=== PATIENT | female | born 1975 | race Caucasian/White ===

== ENCOUNTER 2016-10-04 20:17 | Emergency (ER) | payer SELFPAY ==
[~2016-10-04] VITALS: Ht 172.7 cm; Wt 111.5 kg
[~2016-10-04 20:17] MED LIST: GABA-113 PO; LEVO100T7 PO
[2016-10-04 20:22] VITALS: Ht 172.7 cm; Wt 111.5 kg
[2016-10-04 20:44] VITALS: BP 135/81; PULSE 110; TEMP 37; O2SAT 99
[2016-10-04] MEDS ORDERED: DULO1CAP39 PO (20:46)
[2016-10-04] MEDS ORDERED: GABA-113 PO (20:47)
--- NOTE | 2016-10-04 20:59 | EMERGENCY ROOM VISIT NOTE ---
History First contact with patient: 20:25 Chief Complaint: EAR PAIN Stated Complaint: EAR HURTS DUE TO SOMETHING IN IT History of Present Illness The patient is a 41 year old female who presents to the Emergency Room with complaints of left ear pain for about the past 30 minutes. The patient states that she got out of the shower and used a Q-tip in her ear. She believes that a piece of the Q-tip broke off in her ear canal. She does have the sensation of a foreign body. The patient has not had fever or chills. No drainage or discharge from the ear. She does not have other complaints. She rates her discomfort a 4/10. Review of Systems More than 6 systems were reviewed and otherwise negative with the exception of history of present illness. Family History No pertinent family history Social History Smoking Status: Current Every Day Smoker Marital Status: Current/Historical Medications Scheduled Duloxetine HCl (Duloxetine HCl), 30 MG PO BID Gabapentin (Neurontin), 600 MG PO TID Levothyroxine Sodium (Levothyroxine Sodium), 112 MG PO DAILY Allergies Coded Allergies: No Known Allergies (Verified , 06/16/16) Physical Exam Vital Signs Date Time Temp Pulse Resp B/P Pulse Ox O2 Delivery O2 Flow Rate FiO2 10/04/16 20:44 37.0 110 18 135/81 99 10/04/16 20:22 37.0 110 18 135/81 99 Pain Rating (0-10): 3.0 Physical Exam VITALS: Vitals are noted on the nurse's note and reviewed by myself. Vital signs stable. GENERAL: Well-developed, well-nourished, white female, who is in no acute distress and resting comfortably. Patient is cooperative with the examination. EARS: External ear normal. External auditory canals clear, tympanic membranes pearly jiang without erythema or effusion bilaterally. No foreign body appreciated. No mastoid tenderness or otitis externa/media. HEART: Regular rate and rhythm without murmurs gallops or rubs. LUNGS: Clear to auscultation bilaterally without wheezes, rales or rhonchi. No retractions or accessory muscle use. Medical Decision & Procedures ED Course Physical exam and history were performed. Nursing notes and EMR were reviewed. Patient appears to have left ear pain after putting a Q-tip in her ear. On examination there is no foreign body appreciated. The tympanic membrane appears intact without blood or bleeding. There is no evidence of otitis or mastoiditis. The patient may have caused some superficial injury to her ear while utilizing the Q-tip. At this point I do not feel that she needs additional imaging or medication. She may use [id number] analgesics for pain control. She was asked to monitor for worsening symptoms and invited back to the ER with any new, worsening, or concerning events. The chart was completed utilizing [employer] Speech Voice Recognition Software. Grammatical errors, random word insertions, pronoun errors, and incomplete sentences are an occasional consequence of this system due to software limitations, ambient noise, and hardware issues. Any formal questions or concerns about the content, text, or information contained within the body of this dictation should be directly addressed to the provider for clarification. . Medical Decision Differential diagnosis includes, but is not limited to: Otitis media, otitis externa, foreign body, laceration, abrasion, tympanic membrane injury, and others Impression Primary Impression: Left ear pain Departure Information Dispostion Home / Self-Care Condition GOOD Referrals No Doctor, Assigned Forms HOME CARE DOCUMENTATION FORM, IMPORTANT VISIT INFORMATION Patient Instructions My [facility] Additional Instructions You were seen and evaluated today on an emergency basis only. This is not a substitute for, or an effort to provide, complete comprehensive medical care. It is not possible to recognize and treat all injuries or illnesses in a single emergency department visit. For this reason it is recommended that you followup with your primary care physician next week with any ongoing or persistent symptoms. You are welcome to return to the emergency department anytime with new, worsening, or concerning symptoms.
[2016-10-22] MEDS ORDERED: IBUP-1451 PO (13:10)
[2016-11-26] MEDS ORDERED: DULO60CA44 PO (13:24)
[2017-02-12] MEDS ORDERED: PRT40 PO ×2 (12:09→12:21)
[2017-02-12] MEDS ORDERED: FRRS300 PO ×2 (12:09→12:21)
[2017-02-12] MEDS ORDERED: FLM4 PO ×2 (12:09→12:21)
== END 2016-10-04 20:45 | disposition home or self-care (01) ==
LOC: C.EDB 20:18 → C.EDD 20:45
DX: H92.02 Otalgia, left ear (principal); F17.200 Nicotine dependence, unspecified, uncomplicated

== ENCOUNTER 2017-02-10 17:59 | Inpatient (IN) | payer SELFPAY ==
[~2017-02-10] VITALS: Ht 172.7 cm; Wt 110.0 kg
[~2017-02-10 17:59] MED LIST changes: +DULO60CA44 PO; +IBUP-1451 PO
[2017-02-10] MEDS ORDERED: SODIUM CHLORIDE 0.9% 1000ML 1,000 ML IV STA (18:17)
[2017-02-10 18:54] LABS: ISTAT CREATININE 0.7 mg/dl (0.6-1.3); ISTAT HEMOGLOBIN 9.9 g/dl (12.0-16.0); ISTAT IONIZED CALCIUM 1.12 mmol/l (1.12-1.32)
[2017-02-10 18:59] LABS: INR 0.9 (0.9-1.1); PARTIAL THROMBOPLASTIN RATIO 0.9
[2017-02-10 19:00] LABS: URINE APPEARANCE CLOUDY (CLEAR); URINE BILIRUBIN NEG (NEG); URINE COLOR DK YELLOW; URINE EPITHELIAL CELL AUTO >30 /lpf (0-5); URINE NITRITE NEG (NEG); URINE SPECIFIC GRAVITY 1.024 (1.000-1.030); UROBILINOGEN NEG (NEG)
[2017-02-10 19:06] LABS: ALT/SGPT 10 U/L (12-78); BLOOD UREA NITROGEN 8 mg/dl (7-18); BUN/CREATININE RATIO 8.3 (10-20); CALCIUM 8.4 mg/dl (8.5-10.1); CARBON DIOXIDE 24 mmol/L (21-32); CHLORIDE 109 mmol/L (98-107); CREATININE 0.92 mg/dl (0.60-1.20); GLUCOSE 93 mg/dl (70-99); POTASSIUM 3.1 mmol/L (3.5-5.1); SODIUM 140 mmol/L (136-145)
[2017-02-10 19:09] LABS: MANUAL MICROSCOPIC REQUIRED? NO; REVIEW REQ? YES
[2017-02-10 19:09] LABS: ALKALINE PHOSPHATASE 96 U/L (45-117); AST/SGOT 9 U/L (15-37)
[2017-02-10 19:14] LABS: PREG INTERNAL NEGATIVE QC NEG CLEAR BACKGROUND; PREG INTERNAL POSITIVE QC POS CONTROL LINE
[2017-02-10 19:23] LABS: URINE PATH CASTS 1-5 GRANULAR CASTS /lpf (0)
[2017-02-10] MEDS ORDERED: OPTIRAY 320 IV PRN (20:00)
--- NOTE | 2017-02-10 20:19 | DIAGNOSTIC IMAGING REPORT ---
CT ABD/PELVIS IV CONTRAST ONLY CLINICAL HISTORY: Left lower quadrant abdominal pain. GI bleed. COMPARISON STUDY: None. TECHNIQUE: Following the IV administration of 94 mL of Optiray-320, CT scan of the abdomen and pelvis was performed from the lung bases to the proximal femurs. Images are reviewed in the axial, sagittal, and coronal planes. IV contrast was administered without complication. He dose lowering technique was used consistent with the principal's of PUJA. CT DOSE: 1293.63 mGy.cm FINDINGS: Lower chest: There are mild basilar atelectatic changes. Liver: The contrast-enhanced liver is normal in size, contour, and attenuation. There is no intrahepatic biliary ductal dilatation. The hepatic veins and portal veins are patent. Gallbladder: Unremarkable. Spleen: Normal in size and attenuation. Pancreas: Unremarkable. Adrenal glands: Unremarkable. Kidneys: There are multiple tiny bilateral renal calculi. There is mild right-sided hydronephrosis. There is a 3 mm proximal right ureteral calculus. Bowel: There are no transition zones indicate bowel obstruction. There is rectus diastases. There is a fat-containing umbilical hernia. There are bilateral fat-containing hernias. There is no acute diverticulitis. There are no findings to indicate acute appendicitis. The appendix appears normal. Peritoneum: There is no intraperitoneal free air or abdominal ascites. Vasculature: The abdominal aorta is normal in course and caliber. Adenopathy: None. Pelvic viscera: There are bilateral 3 cm ovarian follicles/cysts, likely functional Skeletal structures: No destructive osseous lesions are seen. IMPRESSION: 1. Bilateral nephrolithiasis 2. 3 mm proximal right ureteral calculus with mild secondary obstructive changes 3. No evidence of bowel obstruction. No evidence of free air 4. Normal appendix. No evidence of diverticulitis. Electronically signed by: Karan Lozoya M.D. 02/10/2017 8:18 PM Dictated Date/Time: 02/10/2017 8:12 PM
[2017-02-10 20:51] LABS: HEMATOCRIT 28.6 % (37-47); MEAN CELL VOLUME 66.1 fL (80-100); MEAN CORPUSCULAR HEMOGLOBIN 17.6 pg (25-34); MEAN CORPUSCULAR HGB CONC 26.6 g/dl (32-36); PLATELET COUNT 624 K/uL (130-400); RED BLOOD COUNT 4.33 M/uL (4.2-5.4); WHITE BLOOD COUNT 14.75 K/uL (4.8-10.8)
[2017-02-10] MEDS ORDERED: POTASSIUM CHLORIDE 10 MEQ / 100ML WTR IV STA (20:53)
[2017-02-10 20:54] LABS: ANISOCYTOSIS PRESENT; BASO % 0.4 %; BASO ABS # 0.06 K/uL (0-0.2); COMPLETE YES; EOS % 6.2 %; HYPOCHROMIA PRESENT; IG% 0.8 %; LYMPH % 23.1 %; MICROCYTOSIS PRESENT; MONO % 6.1 %; NEUT % 63.4 %; POLYCHROMASIA 1+; SPHEROCYTE OCCASIONAL
[2017-02-10] MEDS ORDERED: RANITIDINE HCL 50 MG/100 ML D5W IV STA (22:37)
[2017-02-10 22:42] VITALS: BP 136/85; PULSE 83; TEMP 36.7; O2SAT 97
[2017-02-10] MEDS ORDERED: POTASSIUM CHLORIDE 10 MEQ TABCR PO STA (22:52)
[2017-02-10 23:00] VITALS: BP 139/77; PULSE 85; TEMP 36.7; O2SAT 97
--- NOTE | 2017-02-10 23:03 | EMERGENCY ROOM VISIT NOTE ---
History Report prepared by Fabio: Tita Jaffe Under the Supervision of: Dr. Livan Alexandra M.D. First contact with patient: 18:16 Chief Complaint: ABNORMAL LABS Stated Complaint: BLOOD COUNT LOW AND NEED EVALUATED History of Present Illness The patient is a 41 year old female who presents to the Emergency Room with complaints of an episode of abnormal labs beginning yesterday. The patient states that she was having blood in her stool and this has been going on for years. She reports that she had blood work done yesterday and her blood count was low at 7. After getting the results today she was told to come in to the ED to be evaluated. She notes that she was previously anemic when she was with her daughter but she has never had a blood transfusion. The patient states that she is on Gabapentin and Symbalta and she has been tired and fatigued but did not think this was unusual. She complains of some abdominal cramping. Pt denies LOC, headache, fevers, chills, diaphoresis, visual changes, neck pain, chest pain, breathing difficulties, nausea, vomiting, melena, hematochezia, urinary symptoms, numbness, weakness, lymphadenopathy, rash, or other complaints. She notes that she has chronic lower back pain. No family history of GI issues, Ulcerative Colitis, Irritable Bowel, or Crohn's disease that she knows of. She does state that she was adopted and does not know her biological fathers history. The patient states that she has been having slightly increased bleeding in her stool. She reports that she does not get her period and has not gotten it since September. Source of History: patient Onset: yesterday Position: other (global) Symptom Intensity: 7 Quality: cramping (7), other (low blood count) Timing: other (episode) Note: Pt complains of tiredness, fatigue, and abdominal cramping. Review of Systems See HPI for pertinent positives and negatives. A total of ten systems were reviewed and were otherwise negative. Past Medical & Surgical Medical Problems: (1) Fibromyalgia Family History No pertinent family history stated. Social History Smoking Status: Current Every Day Smoker Marital Status: Housing Status: lives with significant other Occupation Status: employed Current/Historical Medications Scheduled Duloxetine Hcl (Cymbalta), 60 MG PO BID Gabapentin (Neurontin), 600 MG PO TID Levothyroxine Sodium (Levothyroxine Sodium), 112 MCG PO DAILY Scheduled PRN Ibuprofen Tab (Motrin), 1 TAB PO BID PRN for prn Allergies Coded Allergies: No Known Allergies (Verified , 11/26/16) Physical Exam Vital Signs Date Time Temp Pulse Resp B/P (MAP) Pulse Ox O2 Delivery O2 Flow Rate FiO2 02/10/17 22:42 36.7 83 20 136/85 97 02/10/17 22:22 94 20 135/88 99 Room Air 02/10/17 21:22 89 20 144/82 99 Room Air 02/10/17 20:30 91 20 128/57 97 Room Air 02/10/17 19:30 36.8 91 16 129/78 96 Room Air 02/10/17 19:05 99 02/10/17 18:56 98 Room Air Physical Exam GENERAL: Awake, alert, well-appearing, in no distress HENT: Normocephalic, atraumatic. Oropharynx unremarkable. EYES: Normal conjunctiva. Sclera non-icteric. NECK: Supple. No nuchal rigidity. FROM. No JVD. RESPIRATORY: Clear to auscultation. CARDIAC: Tachycardic rate, normal rhythm. Extremities warm and well perfused. Pulses equal. ABDOMEN: Soft, non-distended. Lower abdominal tenderness on palpation. No rebound or guarding. No masses. RECTAL: Deferred. MUSCULOSKELETAL: Chest examination reveals no tenderness. The back is symmetrical on inspection without obvious abnormality. There is no CVA tenderness to palpation. No joint edema. LOWER EXTREMITIES: Calves are equal size bilaterally and non-tender. No edema. No discoloration. NEURO: Normal sensorium. No sensory or motor deficits noted. SKIN: No rash or jaundice noted. RECTAL: Significant hemorrhoidal disease, no active bleeding, no stool, heme negative Medical Decision & Procedures ER Provider Diagnostic Interpretation: Radiology results as stated below per my review and radiologist interpretation: CT ABD/PELVIS IV CONTRAST ONLY FINDINGS: Lower chest: There are mild basilar atelectatic changes. Liver: The contrast-enhanced liver is normal in size, contour, and attenuation. There is no intrahepatic biliary ductal dilatation. The hepatic veins and portal veins are patent. Gallbladder: Unremarkable. Spleen: Normal in size and attenuation. Pancreas: Unremarkable. Adrenal glands: Unremarkable. Kidneys: There are multiple tiny bilateral renal calculi. There is mild right-sided hydronephrosis. There is a 3 mm proximal right ureteral calculus. Bowel: There are no transition zones indicate bowel obstruction. There is rectus diastases. There is a fat-containing umbilical hernia. There are bilateral fat-containing hernias. There is no acute diverticulitis. There are no findings to indicate acute appendicitis. The appendix appears normal. Peritoneum: There is no intraperitoneal free air or abdominal ascites. Vasculature: The abdominal aorta is normal in course and caliber. Adenopathy: None. Pelvic viscera: There are bilateral 3 cm ovarian follicles/cysts, likely functional Skeletal structures: No destructive osseous lesions are seen. IMPRESSION: 1. Bilateral nephrolithiasis 2. 3 mm proximal right ureteral calculus with mild secondary obstructive changes 3. No evidence of bowel obstruction. No evidence of free air 4. Normal appendix. No evidence of diverticulitis. Electronically signed by: Karan Lozoya M.D. 02/10/2017 8:18 PM Dictated Date/Time: 02/10/2017 8:12 PM Laboratory Results 02/10/17 18:30 Red Blood Count 4.33, Mean Corpuscular Volume 66.1, Mean Corpuscular Hemoglobin 17.6, Mean Corpuscular Hemoglobin Concent 26.6, Mean Platelet Volume 9.0, Neutrophils (%) (Auto) 63.4, Lymphocytes (%) (Auto) 23.1, Monocytes (%) (Auto) 6.1, Eosinophils (%) (Auto) 6.2, Basophils (%) (Auto) 0.4, Neutrophils # (Auto) 9.36, Lymphocytes # (Auto) 3.40, Monocytes # (Auto) 0.90, Eosinophils # (Auto) 0.91, Basophils # (Auto) 0.06 02/10/17 18:30 Test 02/10/17 18:25 02/10/17 18:30 02/10/17 18:41 02/10/17 22:52 Urine Color DK YELLOW Urine Appearance CLOUDY (CLEAR) Urine pH 6.0 (4.5-7.5) Urine Specific [place] 1.024 (1.000-1.030) Urine Protein 1+ (NEG) Urine Glucose (UA) NEG (NEG) Urine Ketones NEG (NEG) Urine Occult Blood 3+ (NEG) Urine Nitrite NEG (NEG) Urine Bilirubin NEG (NEG) Urine Urobilinogen NEG (NEG) Urine Leukocyte Esterase TRACE (NEG) Urine WBC (Auto) 10-30 /hpf (0-5) Urine RBC (Auto) >30 /hpf (0-4) Urine Hyaline Casts (Auto) 10-30 /lpf (0-5) Urine Epithelial Cells (Auto) >30 /lpf (0-5) Urine Bacteria (Auto) NEG (NEG) Urine Renal Epithelial Cells 0-5 /lpf (0-5) Urine Pathogenic Casts 1-5 GRANULAR CASTS /lpf (0) White Blood Count 14.75 K/uL (4.8-10.8) Red Blood Count 4.33 M/uL (4.2-5.4) Hemoglobin 7.6 g/dL (12.0-16.0) Hematocrit 28.6 % (37-47) Mean Corpuscular Volume 66.1 fL (80-100) Mean Corpuscular Hemoglobin 17.6 pg (25-34) Mean Corpuscular Hemoglobin Concent 26.6 g/dl (32-36) Platelet Count 624 K/uL (130-400) Mean Platelet Volume 9.0 fL (7.4-10.4) Neutrophils (%) (Auto) 63.4 % Lymphocytes (%) (Auto) 23.1 % Monocytes (%) (Auto) 6.1 % Eosinophils (%) (Auto) 6.2 % Basophils (%) (Auto) 0.4 % Neutrophils # (Auto) 9.36 K/uL (1.4-6.5) Lymphocytes # (Auto) 3.40 K/uL (1.2-3.4) Monocytes # (Auto) 0.90 K/uL (0.11-0.59) Eosinophils # (Auto) 0.91 K/uL (0-0.5) Basophils # (Auto) 0.06 K/uL (0-0.2) RDW Standard Deviation 49.5 fL (36.4-46.3) RDW Coefficient of Variation 20.6 % (11.5-14.5) Immature Granulocyte % (Auto) 0.8 % Immature Granulocyte # (Auto) 0.12 K/uL (0.00-0.02) Nucleated RBC Absolute Count (auto) 0.10 K/uL (0-0) Nucleated Red Blood Cells % 0.7 % Polychromasia 1+ Hypochromasia PRESENT Anisocytosis PRESENT Microcytosis PRESENT Spherocytes OCCASIONAL Prothrombin Time 10.0 SECONDS (9.0-12.0) Prothromb Time International Ratio 0.9 (0.9-1.1) Activated Partial Thromboplast Time 24.5 SECONDS (21.0-31.0) Partial Thromboplastin Ratio 0.9 Est Creatinine Clear Calc Drug Dose 106.7 ml/min Estimated GFR () 90.9 Estimated GFR (Non- 78.4 BUN/Creatinine Ratio 8.3 (10-20) Calcium Level 8.4 mg/dl (8.5-10.1) Total Bilirubin 0.4 mg/dl (0.2-1) Direct Bilirubin < 0.1 mg/dl (0-0.2) Aspartate Amino Transf (AST/SGOT) 9 U/L (15-37) Alanine Aminotransferase (ALT/SGPT) 10 U/L (12-78) Alkaline Phosphatase 96 U/L (45-117) Total Protein 8.3 gm/dl (6.4-8.2) Albumin 3.5 gm/dl (3.4-5.0) Lipase 184 U/L (73-393) Human Chorionic Gonadotropin, Qual NEG (NEG) Bedside Hemoglobin 9.9 g/dl (12.0-16.0) Bedside Hematocrit 29 % (37-47) Bedside Sodium 141 mEq/L (135-144) Bedside Potassium 3.2 mEq/L (3.3-5.0) Bedside Chloride 105 mEq/L (101-112) Bedside Total CO2 22 mEq/l (24-31) Anion Gap 18.0 mmol/L (16-25) Bedside Blood Urea Nitrogen 6 mg/dl (7-18) Bedside Creatinine 0.7 mg/dl (0.6-1.3) Bedside Glucose (other) 94 mg/dl (70-99) Bedside Ionized Calcium (Josr) 1.12 mmol/l (1.12-1.32) Laboratory results reviewed by me Medications Administered Medications (Trade) Dose Ordered Sig/Martha Route Start Time Stop Time Status Last Admin Dose Admin Sodium Chloride 1,000 ml @ 999 mls/hr Q1H1M STAT IV 02/10/17 18:17 02/10/17 19:17 DC 02/10/17 19:00 999 MLS/HR Potassium Chloride (Kcl 10 Meq / Wtr) 10 meq NOW STAT IV 02/10/17 20:53 02/10/17 20:54 DC 02/10/17 21:22 10 MEQ ECG Indication: weakness Rate (beats per minute): 91 Rhythm: normal sinus Findings: no acute ischemic change, no ectopy ED Course 1815: The patient was evaluated in room B11. A complete history and physical exam was performed. 1816: Sodium Chloride 1000 ml @ 999 mls/hr IV. 2052: Potassium Chloride 10meqq IV. 2125: I reevaluated the patient. She notes that she has been taking Motrin several times a day for months for her back pain. 2230: Discussed the patient's case with Dr. Avila of [facility]. The patient will be evaluated for further treatment and disposition. 2240: Upon reexamination, the patient was doing well. I discussed the test results and treatment plan with the patient. The patient will be evaluated for further management. Medical Decision Medication Reconciliation: I attest that I have personally reviewed the patient' s current medication list Patient was found to have a slightly elevated blood pressure due to circumstances. I do not believe that the patient requires hypertension monitoring. Prior records/ancillary studies reviewed. The patient was significantly anemic on outpatient blood work. Triage Nursing notes reviewed and agree them. The patient's history was concerning for possible gastrointestinal bleeding. Differential diagnosis: Etiologies such as diverticulosis, AVM, coagulopathy, colitis, inflammatory bowel disease, malignancy,Nichol-Bell tear, esophagitis, peptic ulcer disease , variceal bleed, gastritis, epistaxis, fissure, hemorrhoids, as well as others were entertained. Physical exam: As above. Abdominal tenderness noted, mainly in the left side. ER treatment provided: IV hydration with normal saline on IV potassium IV Zantac Packed red blood cell transfusion. The patient consented. On reassessment the patient was stable. She denied any significant right-sided pain. She was unaware of her kidney stones. Diagnostics interpreted by me: The labs revealed a mild leukocytosis on CBC. Her chemistry panel was unremarkable for mild hypokalemia. Her CBC did also reveal a significant anemia confirming that from the outpatient setting. test was negative. Urinalysis was as above. Culture pending. Imaging studies: CT scan as above. The patient has a significant anemia. She is hemodynamically stable at the moment. On further history she noted she was taking a significant amount of NSAIDs. Consultation: A consultation was placed with the hospitalist. The case was discussed and diagnostics were reviewed. The patient was evaluated in the ER for further treatment. Consults Time Called: 2134 Consulting Physician: Dr. Austin Archuleta Returned Call: 2230 Discussed the patient's case Dr. Avila of [facility]. The patient will be evaluated for further treatment and disposition. Impression Primary Impression: Severe anemia Additional Impressions: GI bleed Hypokalemia Nephrolithiasis Ureterolithiasis Scribe Attestation The scribe's documentation has been prepared under my direction and personally reviewed by me in its entirety. I confirm that the note above accurately reflects all work, treatment, procedures, and medical decision making performed by me. Departure Information Dispostion Being Evaluated By Hospitalist (COOPER) Referrals [facility] (PCP) Patient Instructions My [facility] Problem Qualifiers
[2017-02-10 23:12] LABS: MAGNESIUM 2.3 mg/dl (1.8-2.4)
[2017-02-10 23:15] VITALS: BP 133/92; PULSE 86; TEMP 36.7; O2SAT 98
[2017-02-10 23:40] VITALS: BP 139/69; PULSE 87; TEMP 37; O2SAT 100; Ht 172.7 cm; Wt 110.0 kg
[2017-02-10 23:45] VITALS: BP 139/69; PULSE 87; TEMP 37; O2SAT 100
[2017-02-10] MEDS ORDERED: ONDANSETRON INJ 2 MG/ML 2 ML VIAL IV PRN (23:45)
[2017-02-10] MEDS ORDERED: ACETAMINOPHEN 325 MG TAB PO PRN (23:45)
[2017-02-10] MEDS ORDERED: PROMETHAZINE HCL INJ 12.5 MG in SODIUM CHLORIDE 0.9% 50ML 50 ML IV PRN (23:45)
[2017-02-10] MEDS ORDERED: TRAMADOL HCL 50 MG TAB PO PRN (23:45)
[2017-02-10] MEDS ORDERED: MoRPHine SULFATE 4 MG/ML 1 ML CARP\\VIAL IV PRN (23:45)
--- NOTE | 2017-02-10 23:51 | History and Physical ---
History & Physical Date & Time of Service: Feb 10, 2017 at 23:51 Chief Complaint: Blood Count Low And Need Evaluated Primary Care Physician: [facility] History of Present Illness Source: patient, partner Patient has been complaining of achy low back pain for some months now. Denies hematuria. No fever or chills. Admits to intake to at least 2 g of [id number] ibuprofen daily for months now, sometimes on an empty stomach. The last week patient noted increase in usual rectal bleeding of several months which she attributed to hemorrhoids. Generalized abdominal pain the last day. No chest pain no shortness of breath. No emesis. No recent antibiotics, no sick contacts, no recent travel. No unusual weight loss. Outpatient hemoglobin noted to be 7. Patient sent by PCP to the emergency room. At the emergency room, Zantac given for possible UG IB. 1 unit packed RBC transfusion initiated in the ER. Past Medical/Surgical History Medical Problems: (1) Fibromyalgia Status: Chronic Hemorrhoids Chronic anemia (Baseline hemoglobin 10) Ongoing tobacco abuse Surgeries : L Knee surgery tonsillectomy Bilateral tubal ligation No previous endoscopies in the past Family History Patient reports no known family medical history. Social History Smoking Status: Current Every Day Smoker Alcohol Use: none Marital Status: Occupational Status: employed, unemployed, other (was working at the [employer] ) Multi-Drug Resistant Organisms History of MDRO: No Allergies Coded Allergies: No Known Allergies (Verified , 11/26/16) Home Medications Scheduled Duloxetine Hcl (Cymbalta), 60 MG PO BID Gabapentin (Neurontin), 600 MG PO TID Levothyroxine Sodium (Levothyroxine Sodium), 112 MCG PO DAILY Scheduled PRN Ibuprofen Tab (Motrin), 1 TAB PO BID PRN for prn Review of Systems As per history of present illness, all other ROS negative. Physical Exam Vital Signs Date Time Temp Pulse Resp B/P (MAP) Pulse Ox O2 Delivery O2 Flow Rate FiO2 02/10/17 23:29 90 20 133/92 97 Room Air 02/10/17 23:15 36.7 86 20 133/92 98 02/10/17 23:00 36.7 85 20 139/77 97 02/10/17 22:42 36.7 83 20 136/85 97 02/10/17 22:22 94 20 135/88 99 Room Air 02/10/17 21:22 89 20 144/82 99 Room Air 02/10/17 20:30 91 20 128/57 97 Room Air 02/10/17 19:30 36.8 91 16 129/78 96 Room Air 02/10/17 19:05 99 02/10/17 18:56 98 Room Air General Appearance: + obese, + pertinent finding (looks older than stated age) Head: normocephalic Eyes: + pertinent finding (pale palpebral conjunctivae, moist buccal mucosa) ENT: + pertinent finding Neck: + pertinent finding Respiratory/Chest: + decreased breath sounds (short) Cardiovascular: regular rate, rhythm Abdomen/GI: + pertinent finding (epigastric/hypogastric tenderness) Back: + right CVA tenderness Extremities/Musculoskelatal: non-tender Neurologic/Psych: alert Skin: + pallor Diagnostics Laboratory Results Results Past 24 Hours Test 02/10/17 18:25 02/10/17 18:30 02/10/17 18:41 Range/Units Urine Color DK YELLOW Urine Appearance CLOUDY CLEAR Urine pH 6.0 4.5-7.5 Urine Specific [place] 1.024 1.000-1.030 Urine Protein 1+ NEG Urine Glucose (UA) NEG NEG Urine Ketones NEG NEG Urine Occult Blood 3+ NEG Urine Nitrite NEG NEG Urine Bilirubin NEG NEG Urine Urobilinogen NEG NEG Urine Leukocyte Esterase TRACE NEG Urine WBC (Auto) 10-30 0-5 /hpf Urine RBC (Auto) >30 0-4 /hpf Urine Hyaline Casts (Auto) 10-30 0-5 /lpf Urine Epithelial Cells (Auto) >30 0-5 /lpf Urine Bacteria (Auto) NEG NEG Urine Renal Epithelial Cells 0-5 0-5 /lpf Urine Pathogenic Casts 1-5 GRANULAR CASTS 0 /lpf White Blood Count 14.75 4.8-10.8 K/uL Red Blood Count 4.33 4.2-5.4 M/uL Hemoglobin 7.6 12.0-16.0 g/dL Hematocrit 28.6 37-47 % Mean Corpuscular Volume 66.1 80-100 fL Mean Corpuscular Hemoglobin 17.6 25-34 pg Mean Corpuscular Hemoglobin Concent 26.6 32-36 g/dl Platelet Count 624 130-400 K/uL Mean Platelet Volume 9.0 7.4-10.4 fL Neutrophils (%) (Auto) 63.4 % Lymphocytes (%) (Auto) 23.1 % Monocytes (%) (Auto) 6.1 % Eosinophils (%) (Auto) 6.2 % Basophils (%) (Auto) 0.4 % Neutrophils # (Auto) 9.36 1.4-6.5 K/uL Lymphocytes # (Auto) 3.40 1.2-3.4 K/uL Monocytes # (Auto) 0.90 0.11-0.59 K/uL Eosinophils # (Auto) 0.91 0-0.5 K/uL Basophils # (Auto) 0.06 0-0.2 K/uL RDW Standard Deviation 49.5 36.4-46.3 fL RDW Coefficient of Variation 20.6 11.5-14.5 % Immature Granulocyte % (Auto) 0.8 % Immature Granulocyte # (Auto) 0.12 0.00-0.02 K/uL Nucleated RBC Absolute Count (auto) 0.10 0-0 K/uL Nucleated Red Blood Cells % 0.7 % Polychromasia 1+ Hypochromasia PRESENT Anisocytosis PRESENT Microcytosis PRESENT Spherocytes OCCASIONAL Prothrombin Time 10.0 9.0-12.0 SECONDS Prothromb Time International Ratio 0.9 0.9-1.1 Activated Partial Thromboplast Time 24.5 21.0-31.0 SECONDS Partial Thromboplastin Ratio 0.9 Sodium Level 140 136-145 mmol/L Potassium Level 3.1 3.5-5.1 mmol/L Chloride Level 109 98-107 mmol/L Carbon Dioxide Level 24 21-32 mmol/L Anion Gap 7.0 18.0 16-25 mmol/L Blood Urea Nitrogen 8 7-18 mg/dl Creatinine 0.92 0.60-1.20 mg/dl Est Creatinine Clear Calc Drug Dose 106.7 ml/min Estimated GFR () 90.9 Estimated GFR (Non- 78.4 BUN/Creatinine Ratio 8.3 10-20 Random Glucose 93 70-99 mg/dl Calcium Level 8.4 8.5-10.1 mg/dl Magnesium Level 2.3 1.8-2.4 mg/dl Total Bilirubin 0.4 0.2-1 mg/dl Direct Bilirubin < 0.1 0-0.2 mg/dl Aspartate Amino Transf (AST/SGOT) 9 15-37 U/L Alanine Aminotransferase (ALT/SGPT) 10 12-78 U/L Alkaline Phosphatase 96 45-117 U/L Total Protein 8.3 6.4-8.2 gm/dl Albumin 3.5 3.4-5.0 gm/dl Lipase 184 73-393 U/L Human Chorionic Gonadotropin, Qual NEG NEG Bedside Hemoglobin 9.9 12.0-16.0 g/dl Bedside Hematocrit 29 37-47 % Bedside Sodium 141 135-144 mEq/L Bedside Potassium 3.2 3.3-5.0 mEq/L Bedside Chloride 105 101-112 mEq/L Bedside Total CO2 22 24-31 mEq/l Bedside Blood Urea Nitrogen 6 7-18 mg/dl Bedside Creatinine 0.7 0.6-1.3 mg/dl Bedside Glucose (other) 94 70-99 mg/dl Bedside Ionized Calcium (Josr) 1.12 1.12-1.32 mmol/l Microbiology Results 02/10/17 Urine Culture, Received Pending Diagnostic Radiology CT ABD/PELVIS IV CONTRAST ONLY CLINICAL HISTORY: Left lower quadrant abdominal pain. GI bleed. COMPARISON STUDY: None. TECHNIQUE: Following the IV administration of 94 mL of Optiray-320, CT scan of the abdomen and pelvis was performed from the lung bases to the proximal femurs. Images are reviewed in the axial, sagittal, and coronal planes. IV contrast was administered without complication. He dose lowering technique was used consistent with the principal's of PUJA. CT DOSE: 1293.63 mGy.cm FINDINGS: Lower chest: There are mild basilar atelectatic changes. Liver: The contrast-enhanced liver is normal in size, contour, and attenuation. There is no intrahepatic biliary ductal dilatation. The hepatic veins and portal veins are patent. Gallbladder: Unremarkable. Spleen: Normal in size and attenuation. Pancreas: Unremarkable. Adrenal glands: Unremarkable. Kidneys: There are multiple tiny bilateral renal calculi. There is mild right-sided hydronephrosis. There is a 3 mm proximal right ureteral calculus. Bowel: There are no transition zones indicate bowel obstruction. There is rectus diastases. There is a fat-containing umbilical hernia. There are bilateral fat-containing hernias. There is no acute diverticulitis. There are no findings to indicate acute appendicitis. The appendix appears normal. Peritoneum: There is no intraperitoneal free air or abdominal ascites. Vasculature: The abdominal aorta is normal in course and caliber. Adenopathy: None. Pelvic viscera: There are bilateral 3 cm ovarian follicles/cysts, likely functional Skeletal structures: No destructive osseous lesions are seen. IMPRESSION: 1. Bilateral nephrolithiasis 2. 3 mm proximal right ureteral calculus with mild secondary obstructive changes 3. No evidence of bowel obstruction. No evidence of free air 4. Normal appendix. No evidence of diverticulitis. Impression Assessment and Plan AP GI bleed LGIB (differentials : Colitis, hemorrhoid bleed) Possible UGIB with epigastric tenderness and admission of OTC NSAID intake ( differentials: gastritis, PUD) Acute on chronic anemia secondary to above Back pain, ? obstructive uropathy on CT Hypokalemia secondary to diarrhea Fibromyalgia as per records Ongoing tobacco abuse GMF Serial H&H, transfuse packed RBC to maintain hemoglobin greater than 7 PPI drip for now for possible UGIB Patient counseled about hazards of excessive NSAID intake Stool C. difficile, Flagyl for now for presumptive C. difficile in light of leukocytosis DC Flagyl if stool C. difficile negative GI consult Re GI bleed replace K Flomax trial, Urology consult re: abnormal CT, possible obstructive uropathy Nicotine patch DVT prophylaxis SCDs Full code VTE Prophylaxis VTE Risk Assessment Done? Y/N: Yes Risk Level: Moderate
[2017-02-11] VITALS (10 sets, daily range): BP systolic 125–148; BP diastolic 69–86; PULSE 78–89; TEMP 36.4–37; O2SAT 97–100
[2017-02-11] MEDS ORDERED: TAMSULOSIN HCL 0.4 MG CAP PO ONE ×2 (01:15→09:00)
[2017-02-11] MEDS ORDERED: METRONIDAZOLE 500 MG TAB PO ONE (01:15)
[2017-02-11] MEDS: LACTATED RINGER'S 1000ML 1,000 ML IV SCH ×2 (01:32→10:15)
[2017-02-11] MEDS: PANTOprazole INJ 40 MG in DEXTROSE 5% 100ML 100 ML IV SCH ×3 (01:32→10:15)
[2017-02-11] MEDS: LEVOTHYROXINE 112 MCG TAB PO SCH (05:32)
[2017-02-11 06:37] LABS: HEMATOCRIT 28.2 % (37-47); MEAN CELL VOLUME 67.8 fL (80-100); MEAN PLATELET VOLUME 8.9 fL (7.4-10.4); PLATELET COUNT 482 K/uL (130-400); RED BLOOD COUNT 4.16 M/uL (4.2-5.4); WHITE BLOOD COUNT 10.19 K/uL (4.8-10.8)
[2017-02-11 06:56] LABS: ANISOCYTOSIS PRESENT; BASO % 0.3 %; BASO ABS # 0.03 K/uL (0-0.2); COMPLETE YES; EOS % 5.3 %; HYPOCHROMIA PRESENT; IG% 0.6 %; LARGE PLATELETS 1+; LYMPH % 24.5 %; MONO % 6.7 %; NEUT % 62.6 %; POLYCHROMASIA 1+
[2017-02-11 07:01] LABS: BUN/CREATININE RATIO 7.2 (10-20); CALCIUM 7.6 mg/dl (8.5-10.1); CREATININE 0.68 mg/dl (0.60-1.20); FERRITIN 3.1 ng/ml (8.0-388.0); POTASSIUM 3.6 mmol/L (3.5-5.1)
[2017-02-11] MEDS: DULOXETINE HCL 60 MG CAP PO SCH ×2 (07:55→20:45)
[2017-02-11] MEDS: NICOTINE 21 MG/24 HR TDSY TD SCH (07:56)
[2017-02-11] MEDS: GABAPENTIN 600 MG TAB PO SCH ×3 (07:56→20:45)
[2017-02-11] MEDS ORDERED: METRONIDAZOLE 500 MG TAB PO SCH (09:00)
[2017-02-11] MEDS: TAMSULOSIN HCL 0.4 MG CAP PO SCH (09:00)
--- NOTE | 2017-02-11 09:00 | Urology Consultation ---
History General Date of Service: Feb 11, 2017. Chief Complaint: kidney stones Primary Care Physician: [facility] Pt seen a urologist before?: No History of Present Illness I am asked by Dr Uribe to evaluate and treat patient for kidney stones. She is admitted with abdominal pain and possible gi bleed. She has been using NSAIDS to try to control her pain. She is anemic. She reports that she had some blood work at [facility] and they called her and told her to go to the ER. She says she has been in her normal state of health the last 5 days. She is sometimes tired. She has no nausea. She has chronic low back pain right and left equally which ranges in intensity from 5-9/10 depending on activity. The pain radiates down both legs. She has no abdominal pain today. Bowels are chronically liquid brown with some red in it. Imaging Imaging: CT Laboratory Results Past 24 Hours Test 02/10/17 18:25 02/10/17 18:30 02/10/17 18:41 02/11/17 05:43 Range/Units Urine Color DK YELLOW Urine Appearance CLOUDY CLEAR Urine pH 6.0 4.5-7.5 Urine Specific [place] 1.024 1.000-1.030 Urine Protein 1+ NEG Urine Glucose (UA) NEG NEG Urine Ketones NEG NEG Urine Occult Blood 3+ NEG Urine Nitrite NEG NEG Urine Bilirubin NEG NEG Urine Urobilinogen NEG NEG Urine Leukocyte Esterase TRACE NEG Urine WBC (Auto) 10-30 0-5 /hpf Urine RBC (Auto) >30 0-4 /hpf Urine Hyaline Casts (Auto) 10-30 0-5 /lpf Urine Epithelial Cells (Auto) >30 0-5 /lpf Urine Bacteria (Auto) NEG NEG Urine Renal Epithelial Cells 0-5 0-5 /lpf Urine Pathogenic Casts 1-5 GRANULAR CASTS 0 /lpf White Blood Count 14.75 10.19 4.8-10.8 K/uL Red Blood Count 4.33 4.16 4.2-5.4 M/uL Hemoglobin 7.6 7.9 12.0-16.0 g/dL Hematocrit 28.6 28.2 37-47 % Mean Corpuscular Volume 66.1 67.8 80-100 fL Mean Corpuscular Hemoglobin 17.6 19.0 25-34 pg Mean Corpuscular Hemoglobin Concent 26.6 28.0 32-36 g/dl Platelet Count 624 482 130-400 K/uL Mean Platelet Volume 9.0 8.9 7.4-10.4 fL Neutrophils (%) (Auto) 63.4 62.6 % Lymphocytes (%) (Auto) 23.1 24.5 % Monocytes (%) (Auto) 6.1 6.7 % Eosinophils (%) (Auto) 6.2 5.3 % Basophils (%) (Auto) 0.4 0.3 % Neutrophils # (Auto) 9.36 6.38 1.4-6.5 K/uL Lymphocytes # (Auto) 3.40 2.50 1.2-3.4 K/uL Monocytes # (Auto) 0.90 0.68 0.11-0.59 K/uL Eosinophils # (Auto) 0.91 0.54 0-0.5 K/uL Basophils # (Auto) 0.06 0.03 0-0.2 K/uL RDW Standard Deviation 49.5 53.4 36.4-46.3 fL RDW Coefficient of Variation 20.6 21.6 11.5-14.5 % Immature Granulocyte % (Auto) 0.8 0.6 % Immature Granulocyte # (Auto) 0.12 0.06 0.00-0.02 K/uL Nucleated RBC Absolute Count (auto) 0.10 0-0 K/uL Nucleated Red Blood Cells % 0.7 % Polychromasia 1+ 1+ Hypochromasia PRESENT PRESENT Anisocytosis PRESENT PRESENT Microcytosis PRESENT Spherocytes OCCASIONAL Prothrombin Time 10.0 9.0-12.0 SECONDS Prothromb Time International Ratio 0.9 0.9-1.1 Activated Partial Thromboplast Time 24.5 21.0-31.0 SECONDS Partial Thromboplastin Ratio 0.9 Sodium Level 140 143 136-145 mmol/L Potassium Level 3.1 3.6 3.5-5.1 mmol/L Chloride Level 109 115 98-107 mmol/L Carbon Dioxide Level 24 24 21-32 mmol/L Anion Gap 7.0 18.0 4.0 3-11 mmol/L Blood Urea Nitrogen 8 5 7-18 mg/dl Creatinine 0.92 0.68 0.60-1.20 mg/dl Est Creatinine Clear Calc Drug Dose 106.7 144.4 ml/min Estimated GFR () 90.9 127.7 Estimated GFR (Non- 78.4 110.2 BUN/Creatinine Ratio 8.3 7.2 10-20 Random Glucose 93 94 70-99 mg/dl Calcium Level 8.4 7.6 8.5-10.1 mg/dl Magnesium Level 2.3 1.8-2.4 mg/dl Total Bilirubin 0.4 0.2-1 mg/dl Direct Bilirubin < 0.1 0-0.2 mg/dl Aspartate Amino Transf (AST/SGOT) 9 15-37 U/L Alanine Aminotransferase (ALT/SGPT) 10 12-78 U/L Alkaline Phosphatase 96 45-117 U/L Total Protein 8.3 6.4-8.2 gm/dl Albumin 3.5 3.4-5.0 gm/dl Lipase 184 73-393 U/L Human Chorionic Gonadotropin, Qual NEG NEG Bedside Hemoglobin 9.9 12.0-16.0 g/dl Bedside Hematocrit 29 37-47 % Bedside Sodium 141 135-144 mEq/L Bedside Potassium 3.2 3.3-5.0 mEq/L Bedside Chloride 105 101-112 mEq/L Bedside Total CO2 22 24-31 mEq/l Bedside Blood Urea Nitrogen 6 7-18 mg/dl Bedside Creatinine 0.7 0.6-1.3 mg/dl Bedside Glucose (other) 94 70-99 mg/dl Bedside Ionized Calcium (Josr) 1.12 1.12-1.32 mmol/l Large Platelets 1+ Absolute Reticulocyte Count 0.08 0.02-0.10 10^6/uL Percent Reticulocyte Count 1.9 0.5-2.0 % Iron Level 21 35-150 mcg/dl Total Iron Binding Capacity 395 250-450 mcg/dl Transferrin 301 200-360 mg/dl Transferrin % Saturation 5 15-50 % Ferritin 3.1 8.0-388.0 ng/ml Vitamin B12 Level 275 211-911 pg/mL Folate 8.83 >5.38 ng/mL Microbiology Results 02/11/17 C.difficile Toxin B Gene (PCR) - Final, Complete No C. difficile toxin B gene detected 02/10/17 Urine Culture, Received Pending Labs were reviewed and are within normal limits unless listed below. Labs are available in the chart and at [facility] Problem List Medical Problems: (1) Hypokalemia Status: Acute (2) Left ear pain Status: Acute (3) Nephrolithiasis Status: Acute (4) Severe anemia Status: Acute (5) Ureterolithiasis Status: Acute Past History fibromyalgia Past Surgical History: orthopedic surgery (left knee scope, ), tonsillectomy, tubal ligation Family History no stones Social History Hx Tobacco Use In Past Year?: Yes (Cigarettes) Smoking: greater than 1 pack/day (smokes 2 ppd ) Alcohol: no current use Marital status: Housing status: lives with family Occupation status: unemployed History of MDRO No Allergies Coded Allergies: No Known Allergies (Verified , 11/26/16) Medications Home Medications: Home Meds and Scripts Medications Dose Route/Sig Max Daily Dose Days Date Category Cymbalta (Duloxetine Hcl) 60 Mg Cap 60 Mg PO BID 11/26/16 Reported Motrin (Ibuprofen) 800 Mg Tab 1 Tab PO BID PRN 30 10/22/16 Reported Neurontin (Gabapentin) 300 Mg Cap 600 Mg PO TID 06/16/16 Reported Levothyroxine Sodium 100 Mcg Tab 112 Mcg PO DAILY 12/04/15 Reported Inpatient Medications: Current Inpatient Medications Medications (Trade) Dose Ordered Sig/Martha Route Start Time Stop Time Status Last Admin Dose Admin Ioversol (Optiray 320) 100 ml UD PRN IV 02/10/17 20:00 02/14/17 19:59 Metronidazole (Flagyl Tab) 500 mg TID PO 02/11/17 09:00 02/21/17 08:59 02/11/17 07:56 500 MG Tamsulosin HCl (Flomax Cap) 0.4 mg QAM PO 02/12/17 09:00 03/14/17 08:59 Pantoprazole Sodium 40 mg/ Dextrose 110 ml @ 20 mls/hr Q5H IV 02/11/17 01:00 03/13/17 00:59 02/11/17 05:37 20 MLS/HR Acetaminophen (Tylenol Tab) 650 mg Q4H PRN PO 02/10/17 23:45 03/12/17 23:44 Tramadol HCl (Ultram Tab) not relieved ... Q6H PRN PO 02/10/17 23:45 03/12/17 23:44 Ondansetron HCl (Zofran Inj) 4 mg Q6H PRN IV 02/10/17 23:45 03/12/17 23:44 Promethazine HCl 12.5 mg/Sodium Chloride 50.5 ml @ 204 mls/hr Q6H PRN IV 02/10/17 23:45 03/12/17 23:44 Morphine Sulfate (MoRPHine SULFATE INJ) 4 mg Q4H PRN IV 02/10/17 23:45 02/24/17 23:44 Nicotine (Nicoderm Cq 21MG Patch) 1 patch QAM TD 02/11/17 09:00 03/13/17 08:59 Lactated Ringer's 1,000 ml @ 100 mls/hr Q10H IV 02/10/17 23:45 03/12/17 23:44 02/11/17 01:32 100 MLS/HR Miscellaneous (Remove Nicoderm Patch) 1 ea HS N/A 02/11/17 21:00 03/13/17 20:59 Duloxetine HCl (Cymbalta Cap) 60 mg BID PO 02/11/17 09:00 03/13/17 08:59 02/11/17 07:55 60 MG Gabapentin (Neurontin Tab) 600 mg TID PO 02/11/17 09:00 03/13/17 08:59 02/11/17 07:56 600 MG Levothyroxine Sodium (Synthroid Tab) 112 mcg DAILYBB PO 02/11/17 06:30 03/13/17 06:29 02/11/17 05:32 112 MCG Review of Systems Review of Systems Constitutional: No fever, No chills Neurological: No dizzy, No seizures Gastrointestinal: + diarrhea, No abdominal pain, No nausea, No vomiting, No constipation Cardiovascular: No chest pain, No palpitations, No swelling ankles/feet Female : + kidney stones, No frequent urination, No painful urination, No urinary retention, No blood in urine Physical Exam Vital Signs: Vital Signs Past 12 Hours Date Time Temp Pulse Resp B/P (MAP) Pulse Ox O2 Delivery O2 Flow Rate FiO2 02/11/17 07:49 36.4 89 18 130/77 (94) 97 Room Air 02/11/17 01:00 36.5 78 18 128/80 98 02/11/17 00:52 36.7 85 18 133/83 (100) 97 Room Air 02/11/17 00:15 36.7 85 18 125/78 98 02/11/17 00:15 36.7 85 18 125/78 98 02/11/17 00:00 37.0 87 18 136/69 (91) 100 Room Air 02/10/17 23:45 37.0 87 18 139/69 100 02/10/17 23:40 37.0 87 18 139/69 100 Room Air 02/10/17 23:29 90 20 133/92 97 Room Air 02/10/17 23:15 36.7 86 20 133/92 98 02/10/17 23:00 36.7 85 20 139/77 97 02/10/17 22:42 36.7 83 20 136/85 97 02/10/17 22:22 94 20 135/88 99 Room Air 02/10/17 21:22 89 20 144/82 99 Room Air Physical Exam: General Appearance: WD/WN, no apparent distress, + obese, + pertinent finding ( laughing at times during the interview, ) ENT: hearing grossly normal Neck: supple, no adenopathy, no JVD, trachea midline Respiratory/Chest: no respiratory distress, no accessory muscle use Gastrointestinal: Abdomen: normal abdomen Bladder: normal bladder Renal: normal renal, cva tenderness (very mild right cva tenderness) Hernia: absent hernia Extremities: non-tender, normal inspection, no pedal edema, no calf tenderness , normal capillary refill Neurologic/Psychiatric: alert, normal mood/affect, oriented x 3 Skin: normal color, warm/dry, no rash Lymphatic: no adenopathy Assessment & Plan Assessment & Plan Imaging: CT (small kidneys stones bilaterally, 3mm right upper ureter stone) bilateral kidney stones and a right upper ureteral stone not having any significant colic so I suggest she be given time to pass the stone I suggest oral flomax 0.4mg daily repeat renal ultrasound in 2-3 weeks. I do not plan to surgically remove stone unless she develops intractable right colic with emesis or her creatinine rises.
--- NOTE | 2017-02-11 11:11 | Gastrointestinal Consultation ---
Gastrointestinal Consultation Date of Consultation: Feb 11, 2017 Attending Physician: Dr. Castro Consulting Physician: Dr. Andrews Reason for Consultation: GI Bleed History of Present Illness Patient is a 41 year old female patient of [facility]. She was seen by Dr. Poonam Richards, Human Resources District Manager who ordered blood tests (pt unsure why the blood tests were ordered ). Testing was completed on Thursday 02/08 and she was contacted yesterday and told to report to [facility] for abnormal lab results. On arrival, the pt was found to be anemic with Hb 7.9 down from 10 in 2016. On arrival yesterday, BUN was normal at 5. Iron is low at 21 and MCV is low at 67. Though she has chronic back pain and recently dental pain, she denies any recent symptoms but her says that she has been more tired in the past 2- 3 weeks, sleeping all night and taking naps. For years, she has had some blood with BMs but attributes this to hemorrhoids. She denies any abdominal pain, nausea/vomiting or black stools. No CP or SOB. She menstruates, but has not had any heavy periods for several years. She denies any excessive bleeding/ bruising. She admits to taking 1 gram of ibuprofen 1-2 times/day, most days, for dental pain for about a year. Past Medical/Surgical History Medical Problems: (1) Hypokalemia Status: Acute (2) Left ear pain Status: Acute (3) Nephrolithiasis Status: Acute (4) Severe anemia Status: Acute (5) Ureterolithiasis Status: Acute Past Medical History: 1. Fibromyalgia 2. Chronic back pain 3. Hemorrhoids 4. Hypothyroidism Past Surgical History: No prior surgeries and no prior endoscopies. Social History Smoking Status: Current Every Day Smoker Marital Status: Housing Status: lives with significant other Occupation Status: unemployed Allergies Coded Allergies: No Known Allergies (Verified , 11/26/16) Current Medications Home Meds and Scripts Medications Dose Route/Sig Max Daily Dose Days Date Category Cymbalta (Duloxetine Hcl) 60 Mg Cap 60 Mg PO BID 11/26/16 Reported Motrin (Ibuprofen) 800 Mg Tab 1 Tab PO BID PRN 30 10/22/16 Reported Neurontin (Gabapentin) 300 Mg Cap 600 Mg PO TID 06/16/16 Reported Levothyroxine Sodium 100 Mcg Tab 112 Mcg PO DAILY 12/04/15 Reported Review of Systems Constitutional: No fever, No chills, No sweats, No weight loss, No weakness Eyes: No eye pain, No redness ENT: No sore throat, No trouble swallowing, No pain on swallowing Respiratory: No cough, No wheezing, No shortness of breath, No dyspnea on exertion Cardiac: No chest pain, No edema, No palpitations Abdomen: + see HPI, + GI bleeding (hemorrhoids), No pain, No nausea, No vomiting, No diarrhea, No constipation Neuro: No memory loss, No weakness, No numbness/tingling, No vertigo, No balance problems Psych: No depression symptoms, No anxiety, No insomnia Heme: No abnormal bleeding/bruising, No night sweats Endo: No excessive thirst, No excessive urination Skin: No rash, No itch, No new/changing skin lesions, No jaundice Physical Exam Date Time Temp Pulse Resp B/P (MAP) Pulse Ox O2 Delivery O2 Flow Rate FiO2 02/11/17 08:00 97 Room Air 02/11/17 07:49 36.4 89 18 130/77 (94) 97 Room Air 02/11/17 01:00 36.5 78 18 128/80 98 02/11/17 00:52 36.7 85 18 133/83 (100) 97 Room Air 02/11/17 00:15 36.7 85 18 125/78 98 02/11/17 00:15 36.7 85 18 125/78 98 02/11/17 00:00 37.0 87 18 136/69 (91) 100 Room Air 02/10/17 23:45 37.0 87 18 139/69 100 02/10/17 23:40 37.0 87 18 139/69 100 Room Air 02/10/17 23:29 90 20 133/92 97 Room Air 02/10/17 23:15 36.7 86 20 133/92 98 02/10/17 23:00 36.7 85 20 139/77 97 02/10/17 22:42 36.7 83 20 136/85 97 02/10/17 22:22 94 20 135/88 99 Room Air 02/10/17 21:22 89 20 144/82 99 Room Air 02/10/17 20:30 91 20 128/57 97 Room Air 02/10/17 19:30 36.8 91 16 129/78 96 Room Air 02/10/17 19:05 99 02/10/17 18:56 98 Room Air General Appearance: no apparent distress Eyes: normal inspection, EOMI Neck: supple, no adenopathy, thyroid normal, no JVD Respiratory/Chest: chest non-tender, lungs clear, normal breath sounds, no accessory muscle use Cardiovascular: regular rate, rhythm, no JVD, no murmur Abdomen: normal bowel sounds, non tender, soft, no organomegaly Extremities: normal inspection, no pedal edema, normal capillary refill Neurologic/Psych: alert, normal mood/affect, oriented x 3 Skin: normal color, no jaundice, warm/dry, no rash Laboratory Results Last 24 Hours Test 02/10/17 18:25 02/10/17 18:30 02/10/17 18:41 02/11/17 05:43 Urine Color DK YELLOW Urine Appearance CLOUDY Urine pH 6.0 Urine Specific [place] 1.024 Urine Protein 1+ Urine Glucose (UA) NEG Urine Ketones NEG Urine Occult Blood 3+ Urine Nitrite NEG Urine Bilirubin NEG Urine Urobilinogen NEG Urine Leukocyte Esterase TRACE Urine WBC (Auto) 10-30 /hpf Urine RBC (Auto) >30 /hpf Urine Hyaline Casts (Auto) 10-30 /lpf Urine Epithelial Cells (Auto) >30 /lpf Urine Bacteria (Auto) NEG Urine Renal Epithelial Cells 0-5 /lpf Urine Pathogenic Casts 1-5 GRANULAR CASTS /lpf White Blood Count 14.75 K/uL 10.19 K/uL Red Blood Count 4.33 M/uL 4.16 M/uL Hemoglobin 7.6 g/dL 7.9 g/dL Hematocrit 28.6 % 28.2 % Mean Corpuscular Volume 66.1 fL 67.8 fL Mean Corpuscular Hemoglobin 17.6 pg 19.0 pg Mean Corpuscular Hemoglobin Concent 26.6 g/dl 28.0 g/dl Platelet Count 624 K/uL 482 K/uL Mean Platelet Volume 9.0 fL 8.9 fL Neutrophils (%) (Auto) 63.4 % 62.6 % Lymphocytes (%) (Auto) 23.1 % 24.5 % Monocytes (%) (Auto) 6.1 % 6.7 % Eosinophils (%) (Auto) 6.2 % 5.3 % Basophils (%) (Auto) 0.4 % 0.3 % Neutrophils # (Auto) 9.36 K/uL 6.38 K/uL Lymphocytes # (Auto) 3.40 K/uL 2.50 K/uL Monocytes # (Auto) 0.90 K/uL 0.68 K/uL Eosinophils # (Auto) 0.91 K/uL 0.54 K/uL Basophils # (Auto) 0.06 K/uL 0.03 K/uL RDW Standard Deviation 49.5 fL 53.4 fL RDW Coefficient of Variation 20.6 % 21.6 % Immature Granulocyte % (Auto) 0.8 % 0.6 % Immature Granulocyte # (Auto) 0.12 K/uL 0.06 K/uL Nucleated RBC Absolute Count (auto) 0.10 K/uL Nucleated Red Blood Cells % 0.7 % Polychromasia 1+ 1+ Hypochromasia PRESENT PRESENT Anisocytosis PRESENT PRESENT Microcytosis PRESENT Spherocytes OCCASIONAL Prothrombin Time 10.0 SECONDS Prothromb Time International Ratio 0.9 Activated Partial Thromboplast Time 24.5 SECONDS Partial Thromboplastin Ratio 0.9 Sodium Level 140 mmol/L 143 mmol/L Potassium Level 3.1 mmol/L 3.6 mmol/L Chloride Level 109 mmol/L 115 mmol/L Carbon Dioxide Level 24 mmol/L 24 mmol/L Anion Gap 7.0 mmol/L 18.0 mmol/L 4.0 mmol/L Blood Urea Nitrogen 8 mg/dl 5 mg/dl Creatinine 0.92 mg/dl 0.68 mg/dl Est Creatinine Clear Calc Drug Dose 106.7 ml/min 144.4 ml/min Estimated GFR () 90.9 127.7 Estimated GFR (Non- 78.4 110.2 BUN/Creatinine Ratio 8.3 7.2 Random Glucose 93 mg/dl 94 mg/dl Calcium Level 8.4 mg/dl 7.6 mg/dl Magnesium Level 2.3 mg/dl Total Bilirubin 0.4 mg/dl Direct Bilirubin < 0.1 mg/dl Aspartate Amino Transf (AST/SGOT) 9 U/L Alanine Aminotransferase (ALT/SGPT) 10 U/L Alkaline Phosphatase 96 U/L Total Protein 8.3 gm/dl Albumin 3.5 gm/dl Lipase 184 U/L Human Chorionic Gonadotropin, Qual NEG Bedside Hemoglobin 9.9 g/dl Bedside Hematocrit 29 % Bedside Sodium 141 mEq/L Bedside Potassium 3.2 mEq/L Bedside Chloride 105 mEq/L Bedside Total CO2 22 mEq/l Bedside Blood Urea Nitrogen 6 mg/dl Bedside Creatinine 0.7 mg/dl Bedside Glucose (other) 94 mg/dl Bedside Ionized Calcium (Josr) 1.12 mmol/l Large Platelets 1+ Absolute Reticulocyte Count 0.08 10^6/uL Percent Reticulocyte Count 1.9 % Iron Level 21 mcg/dl Total Iron Binding Capacity 395 mcg/dl Transferrin 301 mg/dl Transferrin % Saturation 5 % Ferritin 3.1 ng/ml Vitamin B12 Level 275 pg/mL Folate 8.83 ng/mL Impression Patient is a 41 year old female with iron deficiency anemia and frequent, high dose NSAID use. It is reasonable to r/o ulcer disease and H Pylori, though would expect abdominal pain if this were present. Plan 1. EGD - timing to be determined. 2. If no findings to explain anemia on EGD, then would consider colonoscopy but this could be done as an OP. 3. Keep NPO until timing of EGD is determined. 4. Decrease NSAID use. 5. Agree with Protonix, but no gross bleeding thus could receive po, BID instead of a drip. I have personally seen and examined the patient with SHWETA Marte. Her note reflects my exam and findings. I agree with her impression and plan. Given NSAID use and iron def., I will arrange an upper endoscopy. Basilio Andrews M.D.
[2017-02-11] MEDS ORDERED: PROPOFOL IV EMULSION 10 MG/ML 20 ML VIAL IV ONE (11:42)
[2017-02-11] MEDS ORDERED: LIDOCAINE HCL 2% 2 ML VIAL (20MG/ML) ONE (11:42)
--- NOTE | 2017-02-11 11:45 | Progress Note ---
Internal Med Progress Note Date of Service: Feb 11, 2017. Provider Documentation: SUBJECTIVE: Seen and examined at bedside. Got EGD this morning. Denies any bleeding currently. Also denies chest pain, SOB, abdominal pain. Reports chronic back pain. OBJECTIVE: Vital Signs-as noted below Physical Exam: Vitals signs as noted above General Appearance:Moderately built and nourished, no apparent distress Head: normocephalic, Atraumatic Eyes: normal inspection, EOMI, PERRL Neck: supple, Trachea midline Respiratory/Chest: Normal breath sounds, CTA Cardiovascular: S1, S2, No murmur Abdomen/GI:Soft, Non tender, Bowel sounds present Extremities/Musculoskelatal:normal inspection, no edema Neurologic/Psych:grossly no focal neurological deficits Skin: normal color, warm Lab data as noted below. ASSESSMENT & PLAN: Acute GI bleeding Anemia: Likely multifactorial: Iron deficiency, GI bleeding, hemorrhoids Recent NSAIDs use On PPI ggt >>. switch to PPI BID EGD: Antral erosions secondary to NSAIDs use Appreciate GI input Check FOBT Plan for coloscopy as outpatient if positive FOBT Avoid NSAIDs use Monitor Hb Nephrolithiasis: CT abd:3 mm proximal right ureteral calculus with mild secondary obstructive changes Continue Flomax 0.4mg daily per Urology Needs repeat renal ultrasound in 2-3 weeks. Appreciate Urology Input Hypokalemia: Likely secondary to diarrhea. 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 Bilateral nephrolithiasis 2. 3 mm proximal right ureteral calculus with mild secondary obstructive changes 3. No evidence of bowel obstruction. No evidence of free air 4. Normal appendix. No evidence of diverticulitis. Vital Signs: Date Time Temp Pulse Resp B/P (MAP) Pulse Ox O2 Delivery O2 Flow Rate FiO2 02/11/17 13:14 36.6 84 20 143/86 (105) 100 02/11/17 12:40 86 18 128/76 (93) 99 Room Air 02/11/17 12:11 86 18 109/73 (85) 99 Room Air 02/11/17 11:55 89 18 112/67 (82) 96 Room Air 02/11/17 11:38 36.8 80 18 137/76 (96) 97 Room Air 02/11/17 11:17 36.4 18 130/77 97 Room Air 02/11/17 08:00 97 Room Air 02/11/17 07:49 36.4 89 18 130/77 (94) 97 Room Air 02/11/17 01:00 36.5 78 18 128/80 98 02/11/17 00:52 36.7 85 18 133/83 (100) 97 Room Air 02/11/17 00:15 36.7 85 18 125/78 98 02/11/17 00:15 36.7 85 18 125/78 98 02/11/17 00:00 37.0 87 18 136/69 (91) 100 Room Air 02/10/17 23:45 37.0 87 18 139/69 100 02/10/17 23:40 37.0 87 18 139/69 100 Room Air 02/10/17 23:29 90 20 133/92 97 Room Air 02/10/17 23:15 36.7 86 20 133/92 98 02/10/17 23:00 36.7 85 20 139/77 97 02/10/17 22:42 36.7 83 20 136/85 97 02/10/17 22:22 94 20 135/88 99 Room Air 02/10/17 21:22 89 20 144/82 99 Room Air 02/10/17 20:30 91 20 128/57 97 Room Air 02/10/17 19:30 36.8 91 16 129/78 96 Room Air 02/10/17 19:05 99 02/10/17 18:56 98 Room Air Lab Results: Results Past 24 Hours Test 02/10/17 18:25 02/10/17 18:30 02/10/17 18:41 02/11/17 05:43 Range/Units Urine Color DK YELLOW Urine Appearance CLOUDY CLEAR Urine pH 6.0 4.5-7.5 Urine Specific [place] 1.024 1.000-1.030 Urine Protein 1+ NEG Urine Glucose (UA) NEG NEG Urine Ketones NEG NEG Urine Occult Blood 3+ NEG Urine Nitrite NEG NEG Urine Bilirubin NEG NEG Urine Urobilinogen NEG NEG Urine Leukocyte Esterase TRACE NEG Urine WBC (Auto) 10-30 0-5 /hpf Urine RBC (Auto) >30 0-4 /hpf Urine Hyaline Casts (Auto) 10-30 0-5 /lpf Urine Epithelial Cells (Auto) >30 0-5 /lpf Urine Bacteria (Auto) NEG NEG Urine Renal Epithelial Cells 0-5 0-5 /lpf Urine Pathogenic Casts 1-5 GRANULAR CASTS 0 /lpf White Blood Count 14.75 10.19 4.8-10.8 K/uL Red Blood Count 4.33 4.16 4.2-5.4 M/uL Hemoglobin 7.6 7.9 12.0-16.0 g/dL Hematocrit 28.6 28.2 37-47 % Mean Corpuscular Volume 66.1 67.8 80-100 fL Mean Corpuscular Hemoglobin 17.6 19.0 25-34 pg Mean Corpuscular Hemoglobin Concent 26.6 28.0 32-36 g/dl Platelet Count 624 482 130-400 K/uL Mean Platelet Volume 9.0 8.9 7.4-10.4 fL Neutrophils (%) (Auto) 63.4 62.6 % Lymphocytes (%) (Auto) 23.1 24.5 % Monocytes (%) (Auto) 6.1 6.7 % Eosinophils (%) (Auto) 6.2 5.3 % Basophils (%) (Auto) 0.4 0.3 % Neutrophils # (Auto) 9.36 6.38 1.4-6.5 K/uL Lymphocytes # (Auto) 3.40 2.50 1.2-3.4 K/uL Monocytes # (Auto) 0.90 0.68 0.11-0.59 K/uL Eosinophils # (Auto) 0.91 0.54 0-0.5 K/uL Basophils # (Auto) 0.06 0.03 0-0.2 K/uL RDW Standard Deviation 49.5 53.4 36.4-46.3 fL RDW Coefficient of Variation 20.6 21.6 11.5-14.5 % Immature Granulocyte % (Auto) 0.8 0.6 % Immature Granulocyte # (Auto) 0.12 0.06 0.00-0.02 K/uL Nucleated RBC Absolute Count (auto) 0.10 0-0 K/uL Nucleated Red Blood Cells % 0.7 % Polychromasia 1+ 1+ Hypochromasia PRESENT PRESENT Anisocytosis PRESENT PRESENT Microcytosis PRESENT Spherocytes OCCASIONAL Prothrombin Time 10.0 9.0-12.0 SECONDS Prothromb Time International Ratio 0.9 0.9-1.1 Activated Partial Thromboplast Time 24.5 21.0-31.0 SECONDS Partial Thromboplastin Ratio 0.9 Sodium Level 140 143 136-145 mmol/L Potassium Level 3.1 3.6 3.5-5.1 mmol/L Chloride Level 109 115 98-107 mmol/L Carbon Dioxide Level 24 24 21-32 mmol/L Anion Gap 7.0 18.0 4.0 3-11 mmol/L Blood Urea Nitrogen 8 5 7-18 mg/dl Creatinine 0.92 0.68 0.60-1.20 mg/dl Est Creatinine Clear Calc Drug Dose 106.7 144.4 ml/min Estimated GFR () 90.9 127.7 Estimated GFR (Non- 78.4 110.2 BUN/Creatinine Ratio 8.3 7.2 10-20 Random Glucose 93 94 70-99 mg/dl Calcium Level 8.4 7.6 8.5-10.1 mg/dl Magnesium Level 2.3 1.8-2.4 mg/dl Total Bilirubin 0.4 0.2-1 mg/dl Direct Bilirubin < 0.1 0-0.2 mg/dl Aspartate Amino Transf (AST/SGOT) 9 15-37 U/L Alanine Aminotransferase (ALT/SGPT) 10 12-78 U/L Alkaline Phosphatase 96 45-117 U/L Total Protein 8.3 6.4-8.2 gm/dl Albumin 3.5 3.4-5.0 gm/dl Lipase 184 73-393 U/L Human Chorionic Gonadotropin, Qual NEG NEG Bedside Hemoglobin 9.9 12.0-16.0 g/dl Bedside Hematocrit 29 37-47 % Bedside Sodium 141 135-144 mEq/L Bedside Potassium 3.2 3.3-5.0 mEq/L Bedside Chloride 105 101-112 mEq/L Bedside Total CO2 22 24-31 mEq/l Bedside Blood Urea Nitrogen 6 7-18 mg/dl Bedside Creatinine 0.7 0.6-1.3 mg/dl Bedside Glucose (other) 94 70-99 mg/dl Bedside Ionized Calcium (Josr) 1.12 1.12-1.32 mmol/l Large Platelets 1+ Absolute Reticulocyte Count 0.08 0.02-0.10 10^6/uL Percent Reticulocyte Count 1.9 0.5-2.0 % Iron Level 21 35-150 mcg/dl Total Iron Binding Capacity 395 250-450 mcg/dl Transferrin 301 200-360 mg/dl Transferrin % Saturation 5 15-50 % Ferritin 3.1 8.0-388.0 ng/ml Vitamin B12 Level 275 211-911 pg/mL Folate 8.83 >5.38 ng/mL Test 02/11/17 12:00 Range/Units Microbiology Results 02/11/17 C.difficile Toxin B Gene (PCR) - Final, Complete No C. difficile toxin B gene detected 02/10/17 Urine Culture, Received Pending
--- NOTE | 2017-02-11 12:20 | Anesthesiology Progress Note ---
Anesthesia Post Op Note Date & Time Feb 11, 2017 at 12:20 Vital Signs Pain Intensity: 0.0 Vital Signs Past 12 Hours Date Time Temp Pulse Resp B/P (MAP) Pulse Ox O2 Delivery O2 Flow Rate FiO2 02/11/17 12:11 86 18 109/73 (85) 99 Room Air 02/11/17 11:55 89 18 112/67 (82) 96 Room Air 02/11/17 11:38 36.8 80 18 137/76 (96) 97 Room Air 02/11/17 11:17 36.4 18 130/77 97 Room Air 02/11/17 08:00 97 Room Air 02/11/17 07:49 36.4 89 18 130/77 (94) 97 Room Air 02/11/17 01:00 36.5 78 18 128/80 98 02/11/17 00:52 36.7 85 18 133/83 (100) 97 Room Air Notes Mental Status: alert / awake / arousable, participated in evaluation Pt Amnestic to Procedure: Yes Nausea / Vomiting: adequately controlled Pain: adequately controlled Airway Patency, RR, SpO2: stable & adequate BP & HR: stable & adequate Hydration State: stable & adequate Anesthetic Complications: no major complications apparent
--- NOTE | 2017-02-11 12:33 | GI REPORT ---
Procedure Date: 02/11/2017 11:39 AM Procedure: Upper GI endoscopy Indications: Iron deficiency anemia secondary to chronic blood loss Medicines: See the Anesthesia note for documentation of the administered medications Complications: No immediate complications. Estimated Blood Loss: Estimated blood loss was minimal. Procedure: Pre-Anesthesia Assessment: - Prior to the procedure, a History and Physical was performed, and patient medications, allergies and sensitivities were reviewed. The patient's tolerance of previous anesthesia was reviewed. - The risks and benefits of the procedure and the sedation options and risks were discussed with the patient. All questions were answered and informed consent was obtained. - Patient identification and proposed procedure were verified prior to the procedure by the physician and the nurse. The procedure was verified in the pre-procedure area. - Pre-procedure physical examination revealed no contraindications to sedation. - After reviewing the risks and benefits, the patient was deemed in satisfactory condition to undergo the procedure. After obtaining informed consent, the endoscope was passed under direct vision. Throughout the procedure, the patient's blood pressure, pulse, and oxygen saturations were monitored continuously. The scope was introduced through the mouth, and advanced to the third part of duodenum. The upper GI endoscopy was accomplished without difficulty. The patient tolerated the procedure well. Findings: The esophagus was normal. A few localized, small non-bleeding erosions were found in the gastric antrum. There were no stigmata of recent bleeding. Biopsies were taken with a cold forceps for Helicobacter pylori testing. Verification of patient identification for the specimen was done by the physician and nurse using the patient's name and medical record number. Estimated blood loss was minimal. The examined duodenum was normal. The cardia and gastric fundus were normal on retroflexion. Impression: - Normal esophagus. - A few superficial antral erosions from NSAID use. Biopsied. - Normal examined duodenum. Recommendation: - Await pathology results. - I would check stool for heme, if positive than out patient colonoscopy. - [facility] care. Basilio Anrdews M.D. Basilio Andrews MD 02/11/2017 12:33:07 PM This report has been signed electronically. Note Initiated On: 02/11/2017 11:39 AM I attest to the content of the Intraoperative Record and orders documented therein, exceptions below
[2017-02-11 14:40] LABS: HEMATOCRIT 27.3 % (37-47)
[2017-02-11] MEDS ORDERED: NURSING VERBAL MED ORDER ONE (17:15)
[2017-02-11] MEDS: PANTOprazole INJ 40 MG in SYRINGE 0 ML IV SCH (20:46)
[2017-02-12 00:01] VITALS: BP 149/80; PULSE 90; TEMP 36.6; O2SAT 98
[2017-02-12] MEDS: LEVOTHYROXINE 112 MCG TAB PO SCH (05:48)
[2017-02-12 06:43] LABS: HEMATOCRIT 27.4 % (37-47); MEAN CORPUSCULAR HEMOGLOBIN 18.9 pg (25-34); MEAN CORPUSCULAR HGB CONC 27.7 g/dl (32-36); MEAN PLATELET VOLUME 8.7 fL (7.4-10.4); PLATELET COUNT 449 K/uL (130-400); RED BLOOD COUNT 4.03 M/uL (4.2-5.4); WHITE BLOOD COUNT 10.44 K/uL (4.8-10.8)
[2017-02-12 07:00] LABS: CALCIUM 7.7 mg/dl (8.5-10.1); CREATININE 0.65 mg/dl (0.60-1.20); POTASSIUM 3.8 mmol/L (3.5-5.1)
[2017-02-12 07:14] LABS: ANISOCYTOSIS PRESENT; BASO % 0.2 %; BASO ABS # 0.02 K/uL (0-0.2); COMPLETE YES; EOS % 4.3 %; HYPOCHROMIA PRESENT; IG% 0.4 %; LYMPH % 19.8 %; LYMPH ABS # 2.07 K/uL (1.2-3.4); MICROCYTOSIS PRESENT; MONO % 7.3 %
[2017-02-12 07:51] VITALS: BP 129/74; PULSE 95; TEMP 36.8; O2SAT 94
[2017-02-12 08:00] VITALS: O2SAT 94
[2017-02-12] MEDS ORDERED: TAMSULOSIN HCL 0.4 MG CAP PO SCH (09:00)
[2017-02-12] MEDS: TAMSULOSIN HCL 0.4 MG CAP PO SCH (09:29)
[2017-02-12] MEDS: PANTOprazole INJ 40 MG in SYRINGE 0 ML IV SCH (09:29)
[2017-02-12] MEDS: GABAPENTIN 600 MG TAB PO SCH ×2 (09:30→14:00)
[2017-02-12] MEDS: NICOTINE 21 MG/24 HR TDSY TD SCH (09:30)
[2017-02-12] MEDS: DULOXETINE HCL 60 MG CAP PO SCH (09:31)
--- NOTE | 2017-02-12 12:08 | Progress Note ---
Internal Med Progress Note Date of Service: Feb 12, 2017. Provider Documentation: SUBJECTIVE: Seen and examined at bedside. Feels well today. Denies any bleeding issues since hospitalization. Also denies chest pain, SOB, abdominal pain. Eager to get discharged. OBJECTIVE: Vital Signs-as noted below Physical Exam: Vitals signs as noted above General Appearance:Moderately built and nourished, no apparent distress Head: normocephalic, Atraumatic Eyes: normal inspection, EOMI, PERRL Neck: supple, Trachea midline Respiratory/Chest: Normal breath sounds, CTA Cardiovascular: S1, S2, No murmur Abdomen/GI:Soft, Non tender, Bowel sounds present Extremities/Musculoskelatal:normal inspection, no edema Neurologic/Psych:grossly no focal neurological deficits Skin: normal color, warm Lab data as noted below. ASSESSMENT & PLAN: Acute GI bleeding Anemia: Likely multifactorial: Iron deficiency, GI bleeding, hemorrhoids Recent NSAIDs use On PPI ggt >>. switch to PPI BID >> PO daily EGD: Antral erosions secondary to NSAIDs use Appreciate GI input FOBT: Negative Avoid NSAIDs use Monitor Hb:7.6 today Nephrolithiasis: CT abd:3 mm proximal right ureteral calculus with mild secondary obstructive changes Continue Flomax 0.4mg daily per Urology Needs repeat renal ultrasound in 2-3 weeks. Appreciate Urology Input Hypokalemia: Likely secondary to diarrhea. 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 Marcus for Primary care in 1 week Follow up with gastroenterology, Anita Justice PA-C on Feb 24 at 8:00AM Follow up with your Urologist in 2 weeks with repeat Renal Ultrasound as advised PROCEDURES; CT abd: 1. Bilateral nephrolithiasis 2. 3 mm proximal right ureteral calculus with mild secondary obstructive changes 3. No evidence of bowel obstruction. No evidence of free air 4. Normal appendix. No evidence of diverticulitis. Vital Signs: Date Time Temp Pulse Resp B/P (MAP) Pulse Ox O2 Delivery O2 Flow Rate FiO2 02/12/17 08:00 94 Room Air 02/12/17 07:51 36.8 95 16 129/74 (92) 94 Room Air 02/12/17 00:01 36.6 90 18 149/80 (103) 98 Room Air 02/12/17 00:00 Room Air 02/11/17 16:10 36.6 84 18 148/85 (106) 100 Room Air 02/11/17 16:00 100 Room Air 02/11/17 13:14 36.6 84 20 143/86 (105) 100 02/11/17 12:40 86 18 128/76 (93) 99 Room Air 02/11/17 12:11 86 18 109/73 (85) 99 Room Air Lab Results: Results Past 24 Hours Test 02/11/17 13:50 02/11/17 17:51 02/12/17 05:53 02/12/17 10:10 Range/Units Hemoglobin 7.4 7.9 7.6 12.0-16.0 g/dL Hematocrit 27.3 28.0 27.4 37-47 % White Blood Count 10.44 4.8-10.8 K/uL Red Blood Count 4.03 4.2-5.4 M/uL Mean Corpuscular Volume 68.0 80-100 fL Mean Corpuscular Hemoglobin 18.9 25-34 pg Mean Corpuscular Hemoglobin Concent 27.7 32-36 g/dl Platelet Count 449 130-400 K/uL Mean Platelet Volume 8.7 7.4-10.4 fL Neutrophils (%) (Auto) 68.0 % Lymphocytes (%) (Auto) 19.8 % Monocytes (%) (Auto) 7.3 % Eosinophils (%) (Auto) 4.3 % Basophils (%) (Auto) 0.2 % Neutrophils # (Auto) 7.10 1.4-6.5 K/uL Lymphocytes # (Auto) 2.07 1.2-3.4 K/uL Monocytes # (Auto) 0.76 0.11-0.59 K/uL Eosinophils # (Auto) 0.45 0-0.5 K/uL Basophils # (Auto) 0.02 0-0.2 K/uL RDW Standard Deviation 53.5 36.4-46.3 fL RDW Coefficient of Variation 21.7 11.5-14.5 % Immature Granulocyte % (Auto) 0.4 % Immature Granulocyte # (Auto) 0.04 0.00-0.02 K/uL Hypochromasia PRESENT Anisocytosis PRESENT Microcytosis PRESENT Sodium Level 143 136-145 mmol/L Potassium Level 3.8 3.5-5.1 mmol/L Chloride Level 115 98-107 mmol/L Carbon Dioxide Level 25 21-32 mmol/L Anion Gap 3.0 3-11 mmol/L Blood Urea Nitrogen 4 7-18 mg/dl Creatinine 0.65 0.60-1.20 mg/dl Est Creatinine Clear Calc Drug Dose 151.0 ml/min Estimated GFR () 129.6 Estimated GFR (Non- 111.8 BUN/Creatinine Ratio 6.0 10-20 Random Glucose 99 70-99 mg/dl Calcium Level 7.7 8.5-10.1 mg/dl Stool Occult Blood NEGATIVE NEGATIVE
[2017-02-12] MEDS ORDERED: PRT40 PO ×2 (12:09→12:21)
[2017-02-12] MEDS ORDERED: FLM4 PO ×2 (12:09→12:21)
[2017-02-12] MEDS ORDERED: FRRS300 PO ×2 (12:09→12:21)
--- NOTE | 2017-02-12 12:13 | Discharge Summary ---
Discharge Summary Date of Service Feb 12, 2017. Discharge Summary Admission Date: Feb 10, 2017 at 23:00 Discharge Date: Feb 12, 2017 Discharge Disposition: Home Principal Diagnosis: Anemia, Nephrolithiasis Procedures: CT ABD: 1. Bilateral nephrolithiasis 2. 3 mm proximal right ureteral calculus with mild secondary obstructive changes 3. No evidence of bowel obstruction. No evidence of free air 4. Normal appendix. No evidence of diverticulitis. Consultations: GI, Urology Pending Studies/Follow-Up: Follow up with Dr. Marcus for Primary care in 1 week Follow up with gastroenterology, Anita Justice PA-C on Feb 24 at 8:00AM Follow up with your Urologist in 2 weeks with repeat Renal Ultrasound as advised Seek immediate medical attention if your symptoms reoccur or worsen Medication Reconciliation New Medications: Ferrous Sulfate (Ferrous Sulfate) 325 Mg Tab 325 MG PO QAM for 30 Days, #30 TAB 1 Refill Pantoprazole (Pantoprazole Sodium) 40 Mg Tab 40 MG PO QAM for 30 Days, #30 TAB Tamsulosin HCl (Tamsulosin HCl) 0.4 Mg Cap 0.4 MG PO QAM for 30 Days, #30 CAP Continued Medications: Duloxetine Hcl (Cymbalta) 60 Mg Cap 60 MG PO BID, CAP Gabapentin (Neurontin) 300 Mg Cap 600 MG PO TID, CAP Levothyroxine Sodium (Levothyroxine Sodium) 100 Mcg Tab 112 MCG PO DAILY, TAB 5 Refills Discontinued Medications: Ibuprofen Tab (Motrin) 800 Mg Tab 1 TAB PO BID PRN for prn for 30 Days, #60 TAB 1 Refill Admission Information HPI (per Admitting provider): Patient has been complaining of achy low back pain for some months now. Denies hematuria. No fever or chills. Admits to intake to at least 2 g of [id number] ibuprofen daily for months now, sometimes on an empty stomach. The last week patient noted increase in usual rectal bleeding of several months which she attributed to hemorrhoids. Generalized abdominal pain the last day. No chest pain no shortness of breath. No emesis. No recent antibiotics, no sick contacts, no recent travel. No unusual weight loss. Outpatient hemoglobin noted to be 7. Patient sent by PCP to the emergency room. At the emergency room, Zantac given for possible UG IB. 1 unit packed RBC transfusion initiated in the ER. Physical Exam (per Admitting): General Appearance: + obese, + pertinent finding (looks older than stated age) Head: normocephalic Eyes: + pertinent finding (pale palpebral conjunctivae, moist buccal mucosa) ENT: + pertinent finding Neck: + pertinent finding Respiratory/Chest: + decreased breath sounds (short) Cardiovascular: regular rate, rhythm Abdomen/GI: + pertinent finding (epigastric/hypogastric tenderness) Back: + right CVA tenderness Extremities/Musculoskelatal: non-tender Neurologic/Psych: alert Skin: + pallor Hospital Course Acute GI bleeding Anemia: Likely multifactorial: Iron deficiency, GI bleeding, hemorrhoids Recent NSAIDs use On PPI ggt >>. switch to PPI BID >> PO daily EGD: Antral erosions secondary to NSAIDs use Appreciate GI input FOBT: Negative Avoid NSAIDs use Monitor Hb:7.6 today Nephrolithiasis: CT abd:3 mm proximal right ureteral calculus with mild secondary obstructive changes Continue Flomax 0.4mg daily per Urology Needs repeat renal ultrasound in 2-3 weeks. Appreciate Urology Input Hypokalemia: Likely secondary to diarrhea. 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 Marcus for Primary care in 1 week Follow up with gastroenterology, Anita Justice PA-C on Feb 24 at 8:00AM Follow up with your Urologist in 2 weeks with repeat Renal Ultrasound as advised PROCEDURES; CT abd: 1. Bilateral nephrolithiasis 2. 3 mm proximal right ureteral calculus with mild secondary obstructive changes 3. No evidence of bowel obstruction. No evidence of free air 4. Normal appendix. No evidence of diverticulitis. Total time spent on discharge = 36 minutes This includes examination of the patient, discharge planning, medication reconciliation, and communication with other providers. Discharge Instructions Discharge Instructions Date of Service Feb 12, 2017. Admission Reason for Admission: Gi Bleed Discharge Discharge Diagnosis / Problem: Anemia, Nephrolithiasis Discharge Goals Goal(s): Decrease discomfort, Improve function Activity Recommendations Activity Limitations: resume your previous activity Exercise/Sports Limitations: as tolerated . Instructions / Follow-Up Instructions / Follow-Up Follow up with Dr. Marcus for Primary care in 1 week Follow up with gastroenterology, Anita Justice PA-C on Feb 24 at 8:00AM Follow up with your Urologist in 2 weeks with repeat Renal Ultrasound as advised Seek immediate medical attention if your symptoms reoccur or worsen Current Hospital Diet Patient's current hospital diet: Regular Diet Discharge Diet Recommended Diet: Regular Diet Procedures Procedures Performed: RANDOM STOMACH BX Pending Studies Studies pending at discharge: yes List of pending studies: Pathology results of the stomach biopsy Medical Emergencies . Who to Call and When: Medical Emergencies: If at any time you feel your situation is an emergency, please call 911 immediately. . Non-Emergent Contact Non-Emergency issues call your: Primary Care Provider, Volleyball Coach Call Non-Emergent contact if: you have a fever, your pain is not controlled, your pain is worsening, your pain is unusual for you, you have any medication questions If your bleeding reoccurs . . "Provider Documentation" section prepared by Ryan Castro. . VTE Core Measure Inpt VTE Proph given/why not?: SCD's
[2017-02-12 12:46] VITALS: BP 129/74; PULSE 95; TEMP 36.8; O2SAT 94
[2017-02-13] MEDS ORDERED: FERROUS SULFATE 325 MG TAB PO SCH (09:00)
[2017-02-13] MEDS ORDERED: PANTOprazole SOD 40 MG TAB PO SCH (09:00)
== END 2017-02-12 13:25 | disposition home or self-care (01) | DRG 378 ==
LOC: C.EDB 18:01 → C.MED 23:00 → ENRESERV 23:08
PROVIDERS: ADMIT Internal Medicine; ATTEND Internal Medicine
PROC: 0DB68ZX Excision of Stomach, Via Natural or Artificial Opening Endoscopic, Diagnostic (ICD-10-PCS; principal; 2017-02-11 11:34)
DX: K92.2 Gastrointestinal hemorrhage, unspecified (principal); D62 Acute posthemorrhagic anemia; N20.2 Calculus of kidney with calculus of ureter; E87.6 Hypokalemia; M79.7 Fibromyalgia; D50.9 Iron deficiency anemia, unspecified; K64.9 Unspecified hemorrhoids; E03.9 Hypothyroidism, unspecified; Z79.1 Long term (current) use of non-steroidal anti-inflammatories (NSAID); Z79.899 Other long term (current) drug therapy; F17.200 Nicotine dependence, unspecified, uncomplicated